=== PATIENT | female | born 1960 | race Caucasian/White ===

== ENCOUNTER 2022-06-19 04:21 | Day surgery (SDC) | payer BC, OTHER ==
[2022-06-16 11:38] VITALS: BMI 28.5
[2022-06-19] MEDS ORDERED: MIDAZOLAM HCL 2 MG/2 ML SINGLE DOSE VIAL ONE (12:26)
[2022-06-19] MEDS ORDERED: PROPOFOL 20 ML ONE (13:11)
[2022-06-19 15:08] VITALS: RESP 20; TEMP 96.9
[2022-06-19 15:45] VITALS: BP 149/84; PULSE 84
== END 2022-06-19 15:45 | disposition home or self-care (01) ==
LOC: JASU-SURG 04:21
PROVIDERS: ATTEND Obstetrics & Gynecology
PROC: 0UB98ZZ Excision of Uterus, Via Natural or Artificial Opening Endoscopic (ICD-10-PCS; principal; 2022-06-19 12:00)
PROC: 0UBC8ZZ Excision of Cervix, Via Natural or Artificial Opening Endoscopic (ICD-10-PCS; 2022-06-19 12:00)
DX: N95.0 Postmenopausal bleeding (principal); N84.1 Polyp of cervix uteri
CPT/HCPCS: 86850; 86900; 86901; 88305-TC; 88341-TC; 88342-TC; 94760